=== PATIENT | female | born 1960 | race African-American/Black ===

== ENCOUNTER 2019-07-02 12:12 | Outpatient (CLI) | payer OTHER ==
--- NOTE | 2019-07-02 12:24 | RAD ---
EXAM: Chest Two Views 07/02/2019 12:21 PM HISTORY: Disability evaluation COMPARISON: Chest radiograph dated June 25, 2018 FINDINGS: Heart: Normal in size and contour. Pulmonary vessels: Normal. Costophrenic angles: Clear. Lungs: No acute airspace consolidation. Pneumothorax: None. Osseous structures:Intact. Additional findings: None. IMPRESSION: No significant acute intrathoracic disease.
--- NOTE | 2019-07-02 12:28 | RAD ---
XR Knee Lt 2 View: 07/02/2019 12:17 PM CLINICAL INDICATION: Disability evaluation COMPARISON: None. FINDINGS: Bones: No acute fracture is demonstrated. Joints: There are marginal osteophytes affecting the major compartments of the left knee.. Soft Tissue: No acute abnormality.. IMPRESSION: Mild osteoarthrosis of the left knee.
--- NOTE | 2019-07-02 12:42 | RAD ---
XR Lumbar Spine 2 Or 3 View: 07/02/2019 12:17 PM Disability evaluation COMPARISON: None FINDINGS: Fracture: None. Alignment: There is grade 1 anterolisthesis of L4 and L5 which is likely degenerative. Degenerative Change: There is moderate facet osteoarthrosis at L3-4 through L5-S1. There is mild mul tilevel disc degenerative disease. Soft tissues: Surgical clip is seen within the lower left hemipelvis. Bowel gas pattern is unobstruct ed. IMPRESSION: Mild/moderate spondylosis of the lumbar spine
== END 2019-07-02 12:13 | disposition home or self-care (01) ==
LOC: NAV RAD 12:12
PROVIDERS: ATTEND Family Medicine
DX: I50.22 Chronic systolic (congestive) heart failure (principal); M15.9 Polyosteoarthritis, unspecified; M47.816 Spondylosis without myelopathy or radiculopathy, lumbar region
CPT/HCPCS: 71046; 72100